=== PATIENT | female | born 1970 | race Caucasian/White ===

== ENCOUNTER 2025-02-20 10:59 | Outpatient (AMB) | payer OTHER, SELFPAY ==
--- OUTSIDE RECORDS SUMMARY | 2025-02-17 14:39 | XMS_ITS | Encounter Summary ---
Author Organization [facility] Address [address] [place] [address] Care Team Providers Care Application Systems Architect Name Role Phone Mariaelena Joya MD Primary Care Provider [phone] Reason for Referral * Imaging (Routine) - Authorized Specialty Diagnoses / Procedures Referred By Rocac t Referred To Contact Radiology Diagnoses Abnormal mammogram Procedures MG Mammo Digital Diagnostic w Dino Left Mariaelena Joya MD [address] [place] [address] Phone: tel: fax: [address] Phone: tel: Referral ID Status Reason Start Date Expiration Date V isits Requested Visits Authorized [id number] Authorized 01/27/2025 01/27/2026 1 1 Reason for Visit * Imaging (Routine) - Authorized Specialty Diagnoses / Procedures Referred By Contac t Referred To Contact Radiology Diagnoses Abnormal mammogram Procedures MG Mammo Digital Diagnostic w Dino Left Mariaelena Joya MD [address] [place], [place] [address]claudia Gil [place], [place] Phone: tel: fax: [address] Phone: tel: Referral ID Status Reason Start Date Expiration Date V isits Requested Visits Authorized [id number] Authorized 01/27/2025 01/27/2026 1 1 Encounter Details Date Type Department Care Team (Latest Contact Info) Description 02/17/2025 2:39 PM EDT - 02/17/2025 11:59 PM EDT Hospital Encounter Radiology Department - [address] [address] Abnormal mammogram Discharge Disposition: Home or Self Care Social History Tobacco Use Types Packs/Day Years Used Date Smoking Tobacco: Former Cigarettes Passive Smoke Exposure: Never Smokeless Tobacco: Never Housing Instability Answer Date Recorde d Are you worried that in the next 2 months you may not have stable housing? No 10/22/2024 Food Access & Nutrition Answer Date Rec orded Do you have access to a vari ety of food including fruits and vegetables? Yes 10/22/2024 Access to Healthcare Answer Date Record ed Within the last 3 months, ho w many times did you visit the emergency department for your medical care? 0 10/22/2024 Health Literacy Answer Date Recorded How often do you need to hav e someone help you when you read instructions, pamphlets, or other written material from your doctor or pharmacy? Sometimes 10/22/2024 Caregiver: How often do you need to have someone help you when you read instructions, pamphlets, or other written material from your doctor or pharmacy? Not on file 10/22/2024 Financial Risk Answer Date Recorded How hard is it for you to pa y for the very basics like food, housing, medical care, and air conditioning / heating? Somewhat hard 10/22/2024 Transportation Answer Date Recorded Has the lack of transportati on kept you from meetings, work, or from getting things needed for daily living? No Has the lack of transportati on kept you from medical appointments or from getting medications? No 10/22/2024 Social Isolation Answer Date Recorded How often do you feel lonely or isolated from those around you? Sometimes 10/22/2024 Food Risk Answer Date Recorded Within the past 12 months we worried whether our food would run out before we got money to buy more. Sometimes true 025 Within the past 12 months th e food we bought just didn't last and we didn't have money to get more. Never true 10/22/2024 Dependent Care Answer Date Recorded Do you need help finding or paying for care for your loved ones. For example, early childhood associate or elderly care for an older adult? No 10/22/2024 Education Answer Date Recorded Do you think completing more education or training, like finishing a GED, going to college, or learning a trade, would be helpful for you? N/A 10/22/2024 Employment and Income Answer Date Recor ded During the last four weeks, have you been actively looking for work? No 10/22/2024 Living Situation Answer Date Recorded What is your living situation? Unrecognized valu e 10/22/2024 Comments No Sex and Gender Information Value Date Recorded Sex Assigned at Not on file Legal Sex Female 11:02 AM EDT Gender Identity Not on file Sexual Orientation Not on file documented as of this encounter Medications at Time of Discharge ARIPiprazole (ABILIFY) 5 mg tablet TAKE 1 TABLET BY MOUTH 1 TIME EACH DAY. 90 tablet 01/28/2025 DULoxetine (CYMBALTA) [address] capsule TAKE 1 CAPSULE BY MOUTH 1 TIME EACH DAY. DO NOT CRUSH OR CHEW. 90 capsule 1 01/30/2025 EPINEPHrine (EPIPEN) 0.3 mg/0.3 mL injection Inject 0.3 mL (0.3 mg total) into the thigh if needed for anaphylaxis. Call 911 after use. 2 each 1 07/29/2024 07/29/2025 levothyroxine (SYNTHROID, LEVOTHROID) 150 mcg tablet Take 1 tablet (150 mcg total) by mouth 1 (one) time each day. 30 each 2 01/08/2025 04/08/2025 losartan (COZAAR) 25 mg tablet TAKE 1 TABLET BY MOUTH 1 TIME EACH DAY. 90 tablet 1 01/28/2025 documented as of this encounter Discharge Disposition Disposition Code Departure Means Destination Home or Self Care documented in this encounter Plan of Treatment Upcoming Encounters Date Type Department Care Team (Late st Contact Info) Description 04/13/2025 2:30 PM EST Office Visit Adult Medicine [address] [phone] Vira Newman PA [address] [place] [phone] documented as of this encounter Procedures Procedure Name Priority Date/Time Associated Diagnosis Comments MG MAMMO DIGITAL DIAGNOSTIC W DINO LEFT Routine 02/17/2025 2:50 PM EDT Abnormal mammogram documented in this encounter Results * MG Mammo Digital Diagnostic w Dino Left (02/17/2025 2:50 PM EDT) Anatomical Region Laterality Modality Breast Left Mammography 02/17/2025 3:31 PM EDT Impressions 02/17/2025 3:35 PM EDT Tiny benign cyst in the posterior upper left breast. No suspicious abnormalities. Follow-up mammogram at the time of the next annual screening examination. Findings and recommendations were conveyed to the patient. BI-RADS CATEGORY: 2 - BENIGN RECOMMENDATION: Return to annual mammography. Return to annual mammography. Mammo Location: [facility], [address] [place] [address], [address], . -------- FINAL REPORT -------- Dictated By: Susan Fredeirck Dictated Date: 02/17/2025 15:31 ET Assigned Physician: Susan Frederick Reviewed and Electronically Signed By: Susan Frederick Signed Date: 02/17/2025 15:35 ET Workstation ID: [id number] Transcribed By: Self Edit Transcribed Date: 02/17/2025 15:31 ET Narrative 02/17/2025 3:35 PM EDT Diagnostic mammogram of the left breast. Targeted left breast ultrasound. CLINICAL: 54 years old, Female, focal asymmetry in the posterior upper left breast on screening mammogram from 01/23/2025. FINDINGS: MAMMOGRAPHY TECHNIQUE: Spot compression MLO, magnified spot compression lateral view and full field Straight lateral views views, were obtained digitally with 2-D and 3-D mammogram (digital breast tomosynthesis). Small mostly circumscribed nodular opacity persists in the posterior upper left breast better visualized on spot compression MLO view. No superimposed microcalcifications were identified. BREAST DENSITY: C - The breasts are heterogeneously dense which may obscure small masses. ULTRASOUND TECHNIQUE: Targeted ultrasound of the left upper breast was performed from the upper outer and upper inner quadrants. There is a cyst at 2 o'clock, 9 cm from the nipple measuring 0.5 x 0.2 x 0.4 cm most likely corresponding to the mammographic focal asymmetry. No other cystic or solid masses or acoustic shadowing identified. Procedure Note Susan Frederick MD - 02/17/2025 Diagnostic mammogram of the left breast. Targeted left breastultrasound. CLINICAL: 54 years old, Female, focal asymmetry in the posterior upperleft breast on screening mammogram from 01/23/2025. FINDINGS: MAMMOGRAPHY TECHNIQUE: Spot compression MLO, magnified spot compression lateral viewand full field Straight lateral views views, were obtained digitally with2-D and 3-D mammogram (digital breast tomosynthesis). Small mostly circumscribed nodular opacity persists in the posterior upperleft breast better visualized on spot compression MLO view. Nosuperimposed microcalcifications were identified. BREAST DENSITY: C - The breasts are heterogeneously dense which mayobscure small masses. ULTRASOUND TECHNIQUE: Targeted ultrasound of the left upper breast was performed fromthe upper outer and upper inner quadrants. There is a cyst at 2 o'clock,9 cm from the nipple measuring 0.5 x 0.2 x 0.4 cm most likelycorresponding to the mammographic focal asymmetry. No other cystic orsolid masses or acoustic shadowing identified. IMPRESSION: Tiny benign cyst in the posterior upper left breast. No suspiciousabnormalities. Follow-up mammogram at the time of the next annualscreening examination. Findings and recommendations were conveyed to thepatient. BI-RADS CATEGORY: 2 - BENIGN RECOMMENDATION: Return to annual mammography. Return to annual mammography. Mammo Location: [facility], [address] [place] [address], [id number], . -------- FINAL REPORT -------- Dictated By: Susan Frederick Dictated Date: 02/17/2025 15:31 ET Assigned Physician: Susan Frederick Reviewed and Electronically Signed By: Susan Frederick Signed Date: 02/17/2025 15:35 ET Workstation ID: [id number] Transcribed By: Self Edit Transcribed Date: 02/17/2025 15:31 ET us Mariaelena Joya MD IMG BI PROCEDURES Final Res ult documented in this encounter Visit Diagnoses Diagnosis Abnormal mammogram Abnormal mammogram, unspecified documented in this encounter Additional Health Concerns Assessment Noted Time PHQ-9 Depression Total Score: 8 10/23/19 25 1:22 PM EDT documented as of this encounter Care Teams Application Systems Architect Relationship Specialty Start Date End Date Mariaelena Joya MD [address] [place] [address] PCP - General 05/18/23 documented as of this encounter
--- OUTSIDE RECORDS SUMMARY | 2025-02-17 14:41 | XMS_ITS | Encounter Summary ---
Author Organization [facility] Address [address] [place] [address] Care Team Providers Care Cut Off Machine Helper Name Role Phone Mariaelena Joya MD Primary Care Provider [phone] Reason for Referral * Imaging (Routine) - Authorized Specialty Diagnoses / Procedures Referred By Contac t Referred To Contact Radiology Diagnoses Abnormal mammogram Procedures US Breast Limited Left Mariaelena Joya MD [address] [place] [address] Phone: tel: fax: [address] Phone: tel: Referral ID Status Reason Start Date Expiration Date V isits Requested Visits Authorized [id number] Authorized 01/27/2025 01/27/2026 1 1 Reason for Visit * Imaging (Routine) - Authorized Specialty Diagnoses / Procedures Referred By Contac t Referred To Contact Radiology Diagnoses Abnormal mammogram Procedures US Breast Limited Left Mariaelena Joya MD [address] [place] [address] Phone: tel: fax: [address] Phone: tel: Referral ID Status Reason Start Date Expiration Date V isits Requested Visits Authorized [id number] Authorized 01/27/2025 01/27/2026 1 1 Encounter Details Date Type Department Care Team (Latest Contact Info) Description 02/17/2025 2:41 PM EDT - 02/17/2025 11:59 PM EDT Hospital Encounter Radiology Department - [address] [phone] Abnormal mammogram Discharge Disposition: Home or Self [...] your loved ones. For example, early childhood or elderly care for an older adult? [...] Upcoming Encounters Date Type Department Care Team ([facility] st Contact Info) Description 04/13/2025 2:30 PM EST Office Visit Adult Medicine [address] [phone] Vira Newman PA [address] [place] [address] documented as of this encounter Procedures Procedure Name Priority Date/Time Associated Diagnosis Comments US BREAST LIMITED LEFT Routine 02/17/2025 3:24 PM EDT Abnormal mammogram documented in this encounter Results * US Breast Limited Left (02/17/2025 3:24 PM EDT) Anatomical Region Laterality Modality Breast Left Ultrasound 02/17/2025 3:31 PM EDT Impressions 02/17/2025 3:35 PM EDT Tiny benign cyst in the posterior upper left breast. No suspicious abnormalities. Follow-up mammogram at the time of the next annual screening examination. Findings and recommendations were conveyed to the patient. BI-RADS CATEGORY: 2 - BENIGN RECOMMENDATION: Return to annual mammography. Return to annual mammography. Mammo Location: [facility], [address] [place] [address], [id number], . -------- FINAL REPORT -------- Dictated By: Susan Frederick Dictated Date: 02/17/2025 15:31 ET Assigned Physician: Susan Frederick Reviewed and Electronically Signed By: Susan Frederick Signed Date: 02/17/2025 15:35 ET Workstation ID: [id number] Transcribed By: Self Edit Transcribed Date: 02/17/2025 [...] mammography. Return to annual mammography. Mammo Location: [facility], [address] [place] [address], [id number], . -------- FINAL REPORT -------- Dictated By: Susan Frederick Dictated Date: 02/17/2025 15:31 ET Assigned Physician: Susan Frederick Reviewed and Electronically Signed By: Susan Frederick Signed Date: 02/17/2025 15:35 ET Workstation ID: [id number] Transcribed By: Self Edit Transcribed Date: 02/17/2025 15:31 ET us Mariaelena Joya MD IMG US PROCEDURES Final Res ult documented in this encounter Visit Diagnoses Diagnosis Abnormal mammogram Abnormal mammogram, unspecified documented in this encounter Additional Health Concerns Assessment Noted Time PHQ-9 Depression Total Score: 8 10/23/19 25 1:22 PM EDT documented as of this encounter Care Teams Cut Off Machine Helper Relationship Specialty Start Date End Date Mariaelena Joya MD [address] [place] [address] PCP - General 05/18/23 documented as of this encounter
--- NOTE | 2025-02-20 11:09 | A.OFFVIS_ITS ---
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 Intake Note: no concerns Information Interpreted: non-clinical & clinical Boat Carpenter: Boat Carpenter Present (Naye SOTO) Accompanied by: Self / Same As Patient Allergies acetaminophen (From Darvocet-N) Allergy (Intermediate, Verified 02/20/25 11:14) Swelling codeine Allergy (Intermediate, Verified 02/20/25 11:14) Vomiting Penicillins Allergy (Intermediate, Verified 02/20/25 11:14) agitation propoxyphene (From Darvocet-N) Allergy (Intermediate, Verified 02/20/25 11:14) Swelling Medication List - Last Reconciled 02/20/25 by Evi Hu CNM aripiprazole 5 mg PO DAILY duloxetine 60 mg PO ONCE levothyroxine 150 mcg PO DAILY losartan 25 mg PO DAILY rosuvastatin 10 mg PO DAILY Post menopausal: Yes HPI HPI 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 She believes she is due for Pap smear. 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 She has a primary care provider through [facility] she is on medication for depression and is looking for a therapist but it they are hard to find. She has been told that she has diabetic and so she is trying to walk and eat better but it is hard and she has a follow-up appointment in March. She recently had a mammogram and there was something that needed to be checked out and she had follow-up ultrasounds and mammogram that was reassuring so she is good on that front as well. [facility] Medical History (Updated 02/20/25 @ 12:14 by Evi Hu CNM) Cyst of ovary History of kidney stones Anxiety Hyperlipidemia HTN (hypertension) Surgical History (Updated 02/20/25 @ 11:23 by Naye Jack CMA) History of hip surgery Hx of foot surgery Hx of cholecystectomy Hx of tubal ligation Hx of section Family History (Updated 02/20/25 @ 11:25 by Naye Jack CMA) Father Diabetes Mother Diabetes Breast cancer Paternal Grandmother Ovarian cancer Maternal Grandfather Lung cancer Social History (Updated 02/20/25 @ 11:26 by Naye Jack CMA) Household Members: Spouse and Children Housing: House Alcohol intake: current Alcohol intake frequency: holidays/special occasions only Patient Tobacco Use Status: Former Tobacco user Tobacco use type: Cigarette Current occupational status: employed Current occupation: [employer] Sexual orientation: Straight/Heterosexual Gender identity: Female Female Reproductive History Menstrual control method: permanent sterilization Menopause type: natural Total pregnancies: 5 Full term: 2 Number of Living Children: 2 Ab spontaneous: 3 Physical Exam Vital Signs: Last Vital Signs BP 112/68 02/20/25 11:11 BMI result Body Mass Index 37.8 Const General: healthy appearing, comfortable, no acute distress, well developed and alert Nutritional Appearance: average body habitus Orientation/consciousness: patient oriented x3 Limitations: no limitations HEENT Head: Yes normocephalic Neck Neck: Yes normal visual inspection Chest Chest palpation & inspection: normal inspection of the chest Breast/axilla inspection: normal inspection of the breasts and normal inspection of the axillae Breast/axilla palpation: normal palpation of the breasts and normal palpation of the axillae Resp Effort & Inspection: normal respiratory effort GI Inspection: Yes normal to inspection, No Abdominal wall edema and No distended Palpation (GI): Soft to palpation and nontender Other: External scars from low-transverse as well as a vertical small incision 1 of the incisions was for ovarian cyst years ago. Vagina is pink and moist there is a whitish liquidy discharge for which testing is done today discussed the possibility of bacterial vaginosis and/or yeast. Cervix is pink difficult to visualize it is high in the vagina secondary to C- section scar tissue uterus difficult to palpate but not enlarged and nontender good tone with Kegel pubic arch feels very low. General: Yes bladder normal to palpation External Female Exam: normal external appearance and normal appearance of the urethra Speculum Exam - Vagina: normal appearance of the vagina, normal palpation and normal vaginal discharge Speculum Exam - Cervix: normal appearance of the cervix, normal palpation and nontender Bimanual exam- vagina & uterus: normal bimanual exam, normal palpation, uterine size normal, bladder normal to palpation, consistency normal, normal palpation, uterine mobility normal, uterine shape normal, No Cervical tenderness present, non-tender and no cervical motion tenderness Bimanual Exam- Adnexa, other: normal adnexae, no masses, normal and No adnexal tenderness Neuro General: patient oriented x3 Assessment & Plan Assessment & Plan (1) Well woman exam with routine gynecological exam: Code(s): Z01.419 - Encounter for gynecological examination (general) (routine) without abnormal findings Category: Medical (2) Diabetes: Comment: Just recently was told she is diabetic no meds yet working on diet and exercise has follow-up in 1 month. Code(s): E11.9 - Type 2 diabetes mellitus without complications Category: Medical (3) Obesity, Class II, BMI 35-39.9: Code(s): E66.9 - Obesity, unspecified Category: Medical (4) Cervical cancer screening: Code(s): Z12.4 - Encounter for screening for malignant neoplasm of cervix Category: Medical (5) Vaginal discharge: Code(s): N89.8 - Other specified noninflammatory disorders of vagina Category: Medical (6) Anxiety: Comment: Is on 2 medications said help and is seeking a therapist. Code(s): F41.9 - Anxiety disorder, unspecified Category: Medical Plan -----Discussed in this visit the following: healthy balanced diet, regular and consistent exercise, getting recommended health screens, doing the best she can for her particular health concerns, kegel exercises, pap smear screening and followup recommendations, mammography screening and SBE, normal changes in cycles in her life stage--- . See HPI for details discussed strategies to sneak in more walking and to aid in healthier eating habits as she begins to approach dealing with this new diagnosis of diabetes. She will be following up with her primary care provider in March. She is very busy with work and parenting. RTC for us in 1 year. Coding Level of Care Code New Pt Prev Care 40-64y([id number]) Diagnoses Well woman exam with routine gynecological exam Z01.419 Diabetes E11.9 Obesity, Class II, BMI 35-39.9 E66.9 Cervical cancer screening Z12.4 Vaginal discharge N89.8 Anxiety F41.9
[2025-02-20 11:11] VITALS: BP 112/68; BMI 37.8
--- OUTSIDE RECORDS SUMMARY | 2025-02-20 13:02 | XMS_ITS | Encounter Summary ---
Author Organization [facility] Address [address] [place] [address] Care Team Providers Care Trial Justice Name Role Phone Mariaelena Joya MD Primary Care Provider Encounter Details Date Type Department Care Team ([facility] st Contact Info) Description 01/29/2025 Results Follow-Up Adult Medicine [facility] [address] [place] [address] Mariaelena Joya MD [address] [place] [address] Social History Tobacco Use Types Packs/Day Years [...] care for your loved ones. For example, child protection specialist or elderly care for an older adult? [...] on file documented as of this encounter Plan of Treatment Upcoming Encounters Date Type Department Care Team (Late st Contact Info) Description 04/13/2025 2:30 PM EST Office Visit Adult Medicine [address] [phone] Vira Newman PA [address] [place] [address] documented as of this encounter Visit Diagnoses Not on filedocumented in this encounter Additional Health Concerns Assessment Noted Time PHQ-9 Depression Total Score: 8 10/23/19 25 1:22 PM EDT documented as of this encounter Care Teams Trial Justice Relationship Specialty Start Date End Date Mariaelena Joya MD [address] [place] [address] PCP - General 05/18/23 documented as of this encounter
--- OUTSIDE RECORDS SUMMARY | 2025-02-20 13:02 | XMS_ITS | Encounter Summary ---
Author Organization [facility] Address [address] [place] [address] Care Team Providers Care Brakeshoe Repairer Name Role Phone Mariaelena Joya MD Primary Care Provider Encounter Details Date Type Department Care Team ([facility] st Contact Info) Description 02/17/2025 Results Follow-Up Adult Medicine [facility] [address] [place] [address] Mariaelena Joya MD [address] [place] [address] Social History Tobacco Use Types Packs/Day Years [...] care for your loved ones. For example, residential child care counselor or elderly care for an older adult? [...] 2:30 PM EST Office Visit Adult Medicine [address] [phone] Vira Newman PA [address] [place] [address] documented as of this encounter Visit Diagnoses Not on filedocumented in this encounter Additional Health Concerns Assessment Noted Time PHQ-9 Depression Total Score: 8 10/23/19 25 1:22 PM EDT documented as of this encounter Care Teams Brakeshoe Repairer Relationship Specialty Start Date End Date Mariaelena Joya MD [address] [place] [address] PCP - General 05/18/23 documented as of this encounter
--- OUTSIDE RECORDS SUMMARY | 2025-02-20 13:02 | XMS_ITS | Clinical Summary ---
Author Organization [facility] [address] [place] [address] [place] [phone] Phone Care Team Providers Care Clinical Rehabilitation Aide Name Role Phone Mariaelena Joya MD Primary Care Provider Allergies No known active allergies Medications EPINEPHrine (EPIPEN) 0.3 mg/0.3 mL injection Inject 0.3 mL (0.3 mg total) into the thigh if needed for anaphylaxis . Call 911 after use. 2 each 1 5 07/30/19 26 Active rosuvastatin (CRESTOR) 10 mg tablet Take 1 tablet (10 mg total) by mouth 1 (one) time each day. 90 each 5 Active levothyroxine (SYNTHROID, LEVOTHROID) 150 mcg tablet Take 1 tablet (150 mcg total) by mouth 1 (one) time each day. 30 each 2 5 04/08/20 25 Active ARIPiprazole (ABILIFY) 5 mg tablet TAKE 1 TABLET BY MOUTH 1 TIME EACH DAY. 90 tablet 5 Active losartan (COZAAR) 25 mg tablet TAKE 1 TABLET BY MOUTH 1 TIME EACH DAY. 90 tablet 1 5 Active DULoxetine (CYMBALTA) [address] capsule TAKE 1 CAPSULE BY MOUTH 1 TIME EACH DAY. DO NOT CRUSH OR CHEW. 90 capsule 1 5 Active losartan (COZAAR) 25 mg tablet Take 1 tablet (25 mg total) by mouth 1 (one) time each day. 90 each 5 01/29/20 25 Discontinued DULoxetine (CYMBALTA) [address] capsule Take 1 capsule (60 mg total) by mouth 1 (one) time each day. Do not crush or chew. 90 each 5 01/31/20 25 Discontinued ARIPiprazole (ABILIFY) 5 mg tablet Take 1 tablet (5 mg total) by mouth 1 (one) time each day. 90 each 5 01/29/20 25 Discontinued Active Problems Problem Noted Date Diagnosed Date Anxiety and depression 10/23/2024 Diabetes mellitus, new onset (CMS/HCC V24, CMS/H CC V28) 10/23/2024 Class 2 severe obesity due t o excess calories with serious comorbidity and body mass index (BMI) of 38.0 to 38.9 in adult 10/23/2024 Obsessive-compulsive disorder 07/23/2024 Hyperlipidemia 07/23/2024 Primary hypertension 07/23/2024 Hypothyroidism 07/23/2024 Encounters Date Type Department Care Team Description 02/17/2025 2:41 PM EDT - 02/17/2025 11:59 PM EDT Hospital Encounter Radiology Department - [address] [phone] Abnormal mammogram Discharge Disposition: Home or Self Care 02/17/2025 2:39 PM EDT - 02/17/2025 11:59 PM EDT Hospital Encounter Radiology Department - [address] [phone] Abnormal mammogram Discharge Disposition: Home or Self Care 02/17/2025 Results Follow-Up Adult Medicine [address] [phone] Mariaelena Joya MD 01/29/2025 Results Follow-Up Adult Medicine [address] [phone] Mariaelena Joya MD 01/23/2025 9:45 AM EDT - 01/23/2025 11:59 PM EDT Hospital Encounter Radiology Department - [address] [phone] Annual physical exam Discharge Disposition: Home or Self Care 12/12/2024 9:30 AM EDT Office Visit Adult [address] [phone] Vira Nemwan PA Diabetes mellitus, new onset (CMS/HCC V24, CMS/HCC V28) (Primary Dx); Primary hypertension; Anxiety and depression; Mixed hyperlipidemia; Other specified hypothyroidism from Last 3 Months Immunizations Immunization Administration Dates Next Due Pneumococcal conjugate 20 va lent (Prevnar 20, PCV 20) 2mo and older 07/23/2024 Family History Medical History Relation Name Comments Breast cancer Mother 60's Relation Name Status Comments Mother 60's Social History Tobacco Use Types Packs/Day Years [...] care for your loved ones. For example, children teacher or elderly care for an older adult? [...] on file Sexual Orientation Not on file Obstetrics History Para Term AB IAB SAB Ectopic Multiple Livin g Live Births 2 2 2 2 Date Outcome GA Total Labor Labor/2nd/3rd Weight Sex Type Anes PTL Suzette A1 A5 Name Clin Term Term Last Filed Vital Signs Vital Sign Reading Time Taken Comments Blood Pressure 122/72 12/12/2024 9:07 AM EDT Pulse 86 12/12/2024 9:07 AM EDT Temperature 36.3 C (97.3 F) 12/12/2024 9:07 AM EDT Respiratory Rate 12 12/12/2024 9:07 AM EDT Oxygen Saturation 96% 10/23/2024 7:51 AM EDT Inhaled Oxygen Concentration - - Weight 99.8 kg (220 lb) 12/12/2024 9:07 AM EDT Height 162.6 cm (5' 4 ) 12/12/2024 9:07 AM EDT Body Mass Index 37.76 12/12/2024 9:07 AM EDT Plan of Treatment Upcoming Encounters Date Type Department Care Team (Late st Contact Info) Description 04/13/2025 2:30 PM EST Office Visit Adult Medicine [address] [phone] Vira Newman PA [address] [place], [place] Health Maintenance Due Date Last Done Comments Diabetes: Annual Retina Eye Exam 1981 RSV Immunization Adult Patients (1 - Risk 50-74 years 1-dose series) 2021 Cervical Cancer Screening: Pap Smear 04/30/2025 Postponed from 04/10 (Patient Refused) DTaP,Tdap,and Td Vaccines (1 - Tdap) 04/30/2025 Postponed from 04/10 (Patient Refused) Hepatitis B Vaccines (1 of 3 - 19+ 3-dose series) 04/30/2025 Postponed from 03/30 (Patient Refused) Zoster Vaccines (1 of 2) 04/30/2025 Pos tponed from 2021 (Patient Refused) Diabetes: Blood Sugar Contro l Test (HGBA1C) 06/06/2025 12/04/2024, 07/23/2024 Social Influencers of Health Screening 10/22/2025 10/22/2024, 07/23/2024 Diabetes: Annual Foot Exam 10/23/2025 10/23/2024 Diabetes: Annual Urine Albumin-Creatinine Ratio (uACR) 12/04/2025 12/04/2024 Diabetes: Annual GFR (Glomerular Filtration Rate) 12/04/2025 12/04/2024, 07/23/2024 Hypertension/CHF/CAD Annual BMP Blood Test 12/04/2025 12/04/2024, 07/23/2024 Breast Cancer Screening 02/17/2027 02/18/20, 01/23/2025 Colorectal Cancer Screening: Colonoscopy 04/30/2027 Postponed from 04/10 (Patient Refused) Cholesterol Screening (Lipid Panel) 12/04/2029 12/04/2024, 07/23/2024 HIV Screening Addressed 07/23/2024 Overridden wit h the intention of not completing the topic Hepatitis C Screening Completed 07/23/2024 Pneumococcal Vaccine: 50+ Years Completed 07/23/2024 Depression Screening Completed 10/22/2024 COVID-19 Vaccine Completed 01/16/2025, 01/31/2024, 02/03/2023 Influenza Vaccine Completed 01/16/2025, 01/31/2024 HIB Vaccines Aged Out No longer eligi ble based on patient's age to complete this topic HPV Vaccines Aged Out No longer eligi ble based on patient's age to complete this topic Hepatitis A Vaccines Aged Out No long er eligible based on patient's age to complete this topic IPV Vaccines Aged Out No longer eligi ble based on patient's age to complete this topic MMR Vaccines Aged Out No longer eligi ble based on patient's age to complete this topic Meningococcal ACWY Vaccine Aged Out N o longer eligible based on patient's age to complete this topic Meningococcal B Vaccine Aged Out No l onger eligible based on patient's age to complete this topic RSV Immunization Patients Under 20 months Aged Out No longer eligible b ased on patient's age to complete this topic Varicella Vaccines Aged Out No longer eligible based on patient's age to complete this topic Procedures Procedure Name Priority Date/Time Associated Diagnosis Comments US BREAST LIMITED LEFT Routine 3:24 PM EDT Abnormal mammogram MG MAMMO DIGITAL DIAGNOSTIC W DINO LEFT Routine 02/17/2025 2:50 PM EDT Abnormal mammogram MG MAMMO DIGITAL SCREENING W DINO BILAT Routine 01/23/2025 9:56 AM EDT Annual physical exam TRIIODOTHYRONINE FREE Routine 12/04/2024 12:17 PM EDT Hypothyroidism, unspecified type FREE THYROXINE WITH REFLEX TO FREE TRIIODOTHYRONINE Routine 12/04/2024 12:17 PM EDT Hypothyroidism, unspecified type CBC WITH AUTO DIFFERENTIAL Routine 12/04/2024 12:17 PM EDT Abnormal CBC THYROID STIMULATING HORMONE WITH REFLEX TO FREE T4 AND FREE T3 Routine 12/04/2024 12:17 PM EDT Hypothyroidism, unspecified type COMPREHENSIVE METABOLIC PANEL Routine 12/04/2024 12:17 PM EDT Type 2 diabetes mellitus with other specified complication, without long-term current use of insulin (CMS/HCC V24, CMS/HCC V28) HEMOGLOBIN A1C Routine 12/04/2024 12:17 PM EDT Type 2 diabetes mellitus with other specified complication, without long-term current use of insulin (CMS/HCC V24, CMS/HCC V28) MICROALBUMIN CREATININE URINE RATIO Routine 12/04/2024 12:17 PM EDT Type 2 diabetes mellitus with other specified complication, without long-term current use of insulin (CMS/HCC V24, CMS/HCC V28) CBC AND DIFFERENTIAL Routine 12/04/2024 12:17 PM EDT Abnormal CBC LIPID PANEL WITH REFLEX TO DIRECT LDL Routine 12/04/2024 12:17 PM EDT Hyperlipidemia, unspecified hyperlipidemia type ISLET CELL CYTOPLASMIC ANTIBODY, IGG Routine 12/04/2024 12:17 PM EDT Diabetes mellitus, new onset (CMS/HCC V24, CMS/HCC V28) GLUTAMIC ACID DECARBOXYLASE ANTIBODY Routine 12/04/2024 12:17 PM EDT Diabetes mellitus, new onset (CMS/HCC V24, CMS/HCC V28) INSULIN ANTIBODY Routine 12/04/2024 12:1 7 PM EDT Diabetes mellitus, new onset (CMS/HCC V24, CMS/HCC V28) B-TYPE NATRIURETIC PEPTIDE Routine 12/04/2024 12:17 PM EDT SOB (shortness of breath) HEPATITIS PANEL, ACUTE WITH REFLEX TO CONFIRMATION Routine 07/23/2024 4:09 PM EDT Annual physical exam from Last 3 Months or Most Recently Relevant to Health Maintenance Results * US Breast Limited Left (02/17/2025 [...] mammography. Return to annual mammography. Mammo Location: [facility], [address] [place] [address], [id number], . -------- FINAL REPORT -------- Dictated By: Susan Frederick Dictated Date: 02/17/2025 15:31 ET Assigned Physician: Susan Frederick Reviewed and Electronically Signed By: Susan Frederick Signed Date: 02/17/2025 15:35 ET Workstation ID: [id number] Transcribed By: Self Edit Transcribed Date: 02/17/2025 [...] mammography. Return to annual mammography. Mammo Location: [facility], [address] [place] [address], [id number], . -------- FINAL REPORT -------- Dictated By: Susan Frederick Dictated Date: 02/17/2025 15:31 ET Assigned Physician: Susan Frederick Reviewed and Electronically Signed By: Susan Frederick Signed Date: 02/17/2025 15:35 ET Workstation ID: [id number] Transcribed By: Self Edit Transcribed Date: 02/17/2025 15:31 ET us Mariaelena Joya MD IMG US PROCEDURES Final Res ult * MG Mammo Digital Diagnostic w Dino [...] mammography. Return to annual mammography. Mammo Location: [facility], [address] [place] [address], [id number], . -------- FINAL REPORT -------- Dictated By: Susan Frederick Dictated Date: 02/17/2025 15:31 ET Assigned Physician: Susan Frederick Reviewed and Electronically Signed By: Susan Frederick Signed Date: 02/17/2025 15:35 ET Workstation ID: [id number] Transcribed By: Self Edit Transcribed Date: 02/17/2025 [...] mammography. Return to annual mammography. Mammo Location: [facility], [address] [place] [address], [phone], . -------- FINAL REPORT -------- Dictated By: Susan Frederick Dictated Date: 02/17/2025 15:31 ET Assigned Physician: Susan Frederick Reviewed and Electronically Signed By: Susan Frederick Signed Date: 02/17/2025 15:35 ET Workstation ID: [id number] Transcribed By: Self Edit Transcribed Date: 02/17/2025 15:31 ET us Mariaelena Joya MD IMG BI PROCEDURES Final Res ult * (ABNORMAL) MG Mammo Digital Screening w Dino bilat (01/23/2025 9:56 AM EDT) Anatomical Region Laterality Modality Breast Bilateral Mammography 01/26/2025 7:14 PM EDT Impressions 01/26/2025 7:20 PM EDT Recommend additional imaging on the left. No new suspicious finding on the right. The radiology department will recall the patient. CALLBACK VIEWS: Left 90 ML and spot compression MLO views with tomosynthesis, magnification ML view; ultrasound BREAST DENSITY: C - The breasts are heterogeneously dense which may obscure small masses. BI-RADS CATEGORY: 0 - INCOMPLETE - NEED ADDITIONAL IMAGING EVALUATION RECOMMENDATION: Additional left breast imaging recommended. Mammo Location: [facility], [address] [place] [address], [id number], . -------- FINAL REPORT -------- Dictated By: Carly Pinedo Dictated Date: 01/26/2025 19:14 ET Assigned Physician: Carly Pinedo Reviewed and Electronically Signed By: Carly Pinedo Signed Date: 01/26/2025 19:20 ET Workstation ID: [id number] Transcribed By: Self Edit Transcribed Date: 01/26/2025 19:14 ET Narrative 01/26/2025 7:20 PM EDT EXAM: Screening Mammogram EXAM: Screening mammogram CLINICAL: 54 years old, Female, routine annual exam. COMPARISON: 03/04/2022 and 10/01/2020 TECHNIQUE: Bilateral MLO and CC views were obtained digitally with digital breast tomosynthesis. Computer-aided detection was utilized in evaluation of this exam (CAD). FINDINGS: Asymmetry with possible microcalcifications in the posterior upper left breast on the MLO view. Additional imaging evaluation recommended. Otherwise, no new suspicious mass, architectural distortion, or suspicious calcifications. Procedure Note Carly Pinedo MD - 01/26/2025 EXAM: Screening Mammogram EXAM: Screening mammogram CLINICAL: 54 years old, Female, routine annual exam. COMPARISON: 03/04/2022 and 10/01/2020 TECHNIQUE: Bilateral MLO and CC views were obtained digitally with digitalbreast tomosynthesis. Computer-aided detection was utilized in evaluationof this exam (CAD). FINDINGS: Asymmetry with possible microcalcifications in the posterior upper leftbreast on the MLO view. Additional imaging evaluation recommended. Otherwise, no new suspicious mass, architectural distortion, or suspiciouscalcifications. IMPRESSION: Recommend additional imaging on the left. No new suspicious finding onthe right. The radiology department will recall the patient. CALLBACK VIEWS: Left 90 ML and spot compression MLO views withtomosynthesis, magnification ML view; ultrasound BREAST DENSITY: C - The breasts are heterogeneously dense which mayobscure small masses. BI-RADS CATEGORY: 0 - INCOMPLETE - NEED ADDITIONAL IMAGING EVALUATION RECOMMENDATION: Additional left breast imaging recommended. Mammo Location: [facility], [address] [place] [address], [id number], . -------- FINAL REPORT -------- Dictated By: Carly Pinedo Dictated Date: 01/26/2025 19:14 ET Assigned Physician: Carly Pinedo Reviewed and Electronically Signed By: Carly Pinedo Signed Date: 01/26/2025 19:20 ET Workstation ID: [id number] Transcribed By: Self Edit Transcribed Date: 01/26/2025 19:14 ET Mariaelena Joya MD IMG BI PROCEDURES Final Res ult * (ABNORMAL) Thyroid stimulating hormone with reflex to free t4 and free t3 (12/04/2024 12:17 PM EDT) TSH 0.08(L) 0.40 - 4.00 mcIU/mL LAB CHEMISTRY METHOD 12/04/2024 5:18 PM EDT [facility] Blood Venous blood specimen / Unknown Venipuncture / Unknown 12/04/2024 12:17 PM EDT 12/04/2024 12:17 PM EDT Mariaelena Joya MD LAB BLOOD ORDERABLES Final Result [facility] [address] [place] [address], [place] [phone] * Free thyroxine with reflex to free triiodothyronine (12/04/2024 12:17 PM EDT) Free T4 1.70 0.70 - 1.80 ng/dL LAB CHEMISTRY METHOD 12/04/2024 7:45 PM EDT [facility] Blood Venous blood specimen / Unknown Venipuncture / Unknown 12/04/2024 12:17 PM EDT 12/04/2024 12:17 PM EDT Mariaelena Joya MD LAB BLOOD ORDERABLES Final Result [facility] [address] [place] [address], [place] [phone] * Lipid panel with reflex to direct LDL (12/04/2024 12:17 PM EDT) Cholesterol 129 0 - 200 mg/dL LAB CHEMISTRY METHOD 12/04/2024 3:04 PM EDT [facility] Triglycerides 82 0 - 150 mg/dL LAB CHEMISTRY METHOD 12/04/2024 3:04 PM EDT [facility] HDL 53 >=40 mg/dL LAB CHEMISTRY METHOD 12/04/2024 3:04 PM EDT [facility] LDL Calculated 60 0 - 100 mg/dL LAB CHEMISTRY METHOD 12/04/2024 3:04 PM EDT [facility] Comment:Estimated LDL Calcul ated using equation: Total cholesterol - HDL cholesterol - (Triglycerides/5) VLDL Cholesterol Federico 16.4 mg/dL LAB CHEMISTRY METHOD 12/04/2024 3:04 PM EDT [facility] Non HDL Chol. (LDL+VLDL) 76 <145 mg/dL LAB CHEMISTRY METHOD 12/04/2024 3:04 PM EDT [facility] Chol/HDL Ratio 2.4 0.0 - 4.4 LAB CHEMISTRY METHOD 12/04/2024 3:04 PM EDT [facility] Blood Venous blood specimen / Unknown Venipuncture / Unknown 12/04/2024 12:17 PM EDT 12/04/2024 12:17 PM EDT Mariaelena Joya MD LAB BLOOD ORDERABLES Final Result [facility] [address] [place] [address], * Islet cell cytoplasmic antibody, IgG (12/04/2024 12:17 PM EDT) [facility] Islet Cell Antibody IgG <1:4 <1:4 12/09/2024 1:13 PM EDT [facility] Comment: INTERPRETIVE INFORMATION: Islet Cell Ab, IgG Islet cell antibodies (ICAs) are associated with type 1 diabetes (TID), an autoimmune endocrine disorder. ICAs may be present years before the onset of clinical symptoms. To calculate Juvenile Diabetes Foundation (JDF) units: multiply the titer x 5 (1:8 8 x 5 = 40 JDF Units). This test was developed and its performance characteristics determined by [facility]. It has not been cleared or approved by the [place] Food and Drug Administration. This test was performed in a CLIA certified laboratory and is intended for clinical purposes. Performed By: [facility] [address] [place] [id number] [employer] Bluer: Ismael Grijalva MD, PhD CLIA Number: [id number] Blood Venous blood specimen / Unknown Venipuncture / Unknown 12/04/2024 12:17 PM EDT 12/04/2024 12:17 PM EDT us Mariaelena Joya MD LAB BLOOD ORDERABLES Final Result [facility] [address] [place] [address] * (ABNORMAL) CBC auto differential (12/04/2024 12:17 PM EDT) [facility] WBC 7.7 4.8 - 10.8 K/mcL LAB HEMETOLOGY METHOD 12/04/2024 2:01 PM EDT [facility] RBC 5.50(H) 3.80 - 4.80 M/mcL LAB HEMETOLOGY METHOD 12/04/2024 2:01 PM EDT [facility] Hemoglobin 14.2 11.5 - 16.0 g/dL LAB HEMETOLOGY METHOD 12/04/2024 2:01 PM [facility] Hematocrit 45.5 35.0 - 47.0 % LAB [facility]OLOG[facility] MCV 83.5 79.0 - 98.0 FL LAB HEMETOLOGY METHOD 12/04/2024 2:01 PM [facility] MCH 26.1(L) 27.0 - 32.0 pcg LAB HEMETOLOGY METHOD 12/04/2024 2:01 PM [facility] MCHC 31.2(L) 32.0 - 37.0 g/dL LAB HEMETOLOGY METHOD 12/04/2024 2:01 PM [facility] RDW 13.6 11.0 - 15.0 % LAB HEMETOLOGY METHOD 12/04/2024 2:01 PM [facility] Platelets 313 130 - 400 K/mcL LAB HEMETOLOGY METHOD 12/04/2024 2:01 PM [facility] MPV 10.9 7.0 - 11.0 FL LAB HEMETOLOGY METHOD 12/04/2024 2:01 PM [facility] NRBC 0.0 <1.0 % LAB HEMETOLOGY METHOD 12/04/2024 2:01 PM [facility] NRBC Absolute 0.00 <0.10 K/mcL LAB HEMETOLOGY METHOD 12/04/2024 2:01 PM [facility] Neutrophils Relative 60.8 % LAB HEMETOLOGY METHOD 12/04/2024 2:01 PM [facility] Lymphocytes Relative 30.8 % LAB HEMETOLOGY METHOD 12/04/2024 2:01 PM [facility] Monocytes Relative 5.8 % LAB HEMETOLOGY METHOD 12/04/2024 2:01 PM [facility] Eosinophils Relative 1.4 % LAB HEMETOLOGY METHOD 12/04/2024 2:01 PM EDT [facility] Basophils Relative 0.8 % LAB HEMETOLOGY METHOD 12/04/2024 2:01 PM [facility] Immature Granulocytes Relative 0.4 % LAB HEMETOLOGY METHOD 12/04/2024 2:01 PM EDT [facility] Neutrophils Absolute 4.69 1.50 - 7.00 K/mcL LAB HEMETOLOGY METHOD 12/04/2024 2:01 PM EDT [facility] Lymphocytes Absolute 2.38 1.00 - 5.00 K/mcL LAB HEMETOLOGY METHOD [facility]24 [facility] Monocytes Absolute 0.45 0.20 - 1.00 K/mcL LAB HEMETOLOGY METHOD 12/04/2024 2:01 PM EDT [facility] Eosinophils Absolute 0.11 0.00 - 0.50 K/mcL LAB HEMETOLOGY METHOD 12/04/2024 2:01 PM EDT [facility] Basophils Absolute 0.06 0.00 - 0.20 K/mcL LAB HEMETOLOGY METHOD 12/04[facility]2024 2[facility] Immature Granulocytes Absolute 0.03 0.00 - 0.03 K/mcL LAB HEMETOLOGY METHOD 12/04/2024 2:01 PM EDT [facility] Blood Venous blood specimen / Unknown Venipuncture / Unknown 12/04/2024 12:17 PM EDT 12/04/2024 12:17 PM EDT us Mariaelena Joya MD LAB BLOOD ORDERABLES Final Result [facility] [address] [place] [address], * Microalbumin creatinine urine ratio (12/04/2024 12:17 PM EDT) [facility] Creatinine, Urine 185.0 mg/dL LAB CHEMISTRY METHOD 12/04/2024 3:19 PM EDT [facility] Microalb, Ur 16.6 0.0 - 29.0 mg/L LAB CHEMISTRY METHOD 12/04/2024 3:19 PM EDT [facility] Microalb/Creat Ratio 9 <30 mg/g creat LAB CHEMISTRY METHOD 12/04/2024 3:19 PM EDT [facility] Urine Urine specimen obtained by clean catch procedure / Unknown Non-blood Collection / Unknown 12/04/2024 12:17 PM EDT 12/04/2024 12:17 PM EDT Mariaelena Joya MD LAB URINE ORDERABLES Final Result [facility] [address] [place] [address], [place] [phone] * Glutamic acid decarboxylase antibody (12/04/2024 12:17 PM EDT) [facility] Glutamic Acid Decarboxylase Ab <5 <5 IU/mL 12/09/2024 4:34 PM EDT [facility] Comment: Test performed at [facility], [address], [place] [address] Shweta Quinonez MD, PhD - Reports Analysis Manager Blood Venous blood specimen / Unknown Venipuncture / Unknown 12/04/2024 12:17 PM EDT 12/04/2024 12:17 PM EDT Mariaelena Joya MD LAB BLOOD ORDERABLES Final Result [facility] [address] [place] [address] * Insulin antibody (12/04/2024 12:17 PM EDT) [facility] Insulin Antibody <0.4 0.0 - 0.4 U/mL 12/10/2024 8:15 PM EDT [facility] Comment: INTERPRETIVE INFORMATION: Insulin Antibody A value greater than 0.4 Kronus Units/mL is considered positive for Insulin Antibody. Kronus units are arbitrary. Kronus Units = U/mL. This assay is intended for the semi-quantitative determination of antibodies to endogenous insulin or antibodies to exogenous insulin in human serum. Antibodies to exogenous insulin therapies may be detected using this method. The magnitude of the measured result is not related to disease progression. Results should be interpreted within the context of clinical symptoms. Performed By: [facility] [address] [place] [id number] [employer] Bluer: Ismael Grijalva MD, PhD CLIA Number: [id number] Blood Venous blood specimen / Unknown Venipuncture / Unknown 12/04/2024 12:17 PM EDT 12/04/2024 12:17 PM EDT Mariaelena Joya MD LAB BLOOD ORDERABLES Final Result [facility] [address] [place] [address] * Triiodothyronine free (12/04/2024 12:17 PM EDT) [facility] T3, Free 368 230 - 420 pcg/dL LAB CHEMISTRY METHOD 12/04/2024 9:01 PM EDT [facility] Blood Venous blood specimen / Unknown Venipuncture / Unknown 12/04/2024 12:17 PM EDT 12/04/2024 12:17 PM EDT Mariaelena Joya MD LAB BLOOD ORDERABLES Final Result [facility] [address] [place] [address], [place] [phone] * B-type natriuretic peptide (12/04/2024 12:17 PM EDT) [facility] BNP 33 <=100 pcg/mL LAB CHEMISTRY METHOD 12/04/2024 2:56 PM EDT [facility] Blood Venous blood specimen / Unknown Venipuncture / Unknown 12/04/2024 12:17 PM EDT 12/04/2024 12:17 PM EDT Mariaelena Joya MD LAB BLOOD ORDERABLES Final Result Performing Organization Address [facility]/ZIP Co de Phone Number [facility] [address] [place] [address], [place] [phone] * (ABNORMAL) Hemoglobin A1c (12/04/2024 12:17 PM EDT) [facility] Hemoglobin A1C 6.9(H) <6.5 % LAB CHEMISTRY METHOD 12/04/2024 9:47 PM EDT [facility] Mean Bld Glu Estim. 151 mg/dL LAB CHEMISTRY METHOD 12/04/2024 9:47 PM EDT [facility] Blood Venous blood specimen / Unknown Venipuncture / Unknown 12/04/2024 12:17 PM EDT 12/04/2024 12:17 PM EDT us Mariaelena Joya MD LAB BLOOD ORDERABLES Final Result Performing Organization Address [facility]/ZIP Co de Phone Number [facility] [address] [place] [address], [place] [phone] * (ABNORMAL) Comprehensive metabolic panel (12/04/2024 12:17 PM EDT) [facility] Sodium 138 133 - 145 mmol/L LAB CHEMISTRY METHOD 12/04/2024 3:04 PM EDT [facility] Potassium 4.5 3.5 - 5.5 mmol/L LAB CHEMISTRY METHOD 12/04/2024 3:04 PM EDT [facility] Chloride 106 96 - 110 mmol/L LAB CHEMISTRY METHOD 12/04/2024 3:04 PM [facility] CO2 29 21 - 32 mmol/L LAB CHEMISTRY METHOD 12/04/2024 3:04 PM [facility] Anion Gap 3 3 - 11 LAB CHEMISTRY METHOD 12/04/2024 3:04 PM [facility] Glucose 123(H) 70 - 100 mg/dL LAB CHEMISTRY METHOD 12/04/2024 3:04 PM [facility] BUN 11 5 - 25 mg/dL LAB CHEMISTRY METHOD 12/04/2024 3:04 PM [facility] Creatinine 0.90 0.50 - 1.10 mg/dL LAB CHEMISTRY METHOD 12/04/2024 3:04 PM [facility] eGFR 77 >=60 mL/min/1. 73m2 LAB CHEMISTRY METHOD 12/04/2024 3:04 PM [facility] Comment:Calculation based on the Chronic Kidney Disease Epidemiology Collaboration (CKD-EPI) equation refit without adjustment for race. BUN/Creatinine Ratio 12.2 LAB CHEMISTRY METHOD 12/04/2024 3:04 PM [facility] Calcium 9.6 8.5 - 10.5 mg/dL LAB CHEMISTRY METHOD 12/04/2024 3:04 PM [facility] AST (SGOT) 13 10 - 42 unit/L LAB CHEMISTRY METHOD 12/04/2024 3:04 PM [facility] ALT (SGPT) 26 10 - 60 unit/L LAB CHEMISTRY METHOD 12/04/2024 3:04 PM [facility] Alkaline Phosphatase 110 42 - 121 unit/L LAB CHEMISTRY METHOD 12/04/2024 3:04 PM [facility] Total Protein 7.0 6.0 - 8.0 g/dL LAB CHEMISTRY METHOD 12/04/2024 3:04 PM [facility] Albumin 4.0 3.2 - 5.0 g/dL LAB CHEMISTRY METHOD 12/04/2024 3:04 PM EDT [facility] Total Bilirubin 0.5 0.0 - 1.4 mg/dL LAB CHEMISTRY METHOD 12/04/2024 3:04 PM EDT [facility] Blood Venous blood specimen / Unknown Venipuncture / Unknown 12/04/2024 12:17 PM EDT 12/04/2024 12:17 PM EDT Mariaelena Joya MD LAB BLOOD ORDERABLES Final Result [facility] [address] [place] [address], [place] [phone] * Hepatitis panel, acute with reflex to confirmation (07/23/2024 4:09 PM EDT) Hepatitis B Surface Ag Negative Negative LAB CHEMISTRY METHOD 07/23/2024 9:55 PM EDT [facility] Hepatitis A Antibody IgM Negative Negative LAB CHEMISTRY METHOD 07/23/2024 9:55 PM EDT [facility] Hep B Core IgM Negative Negative LAB CHEMISTRY METHOD 07/23/2024 9:55 PM EDT [facility] Hepatitis C Antibody Negative Negative LAB CHEMISTRY METHOD 07/23/2024 9:55 PM EDT [facility] Blood Venous blood specimen / Unknown Venipuncture / Unknown 07/23/2024 4:09 PM EDT 07/23/2024 4:09 PM EDT Mariaelena Joya MD LAB BLOOD ORDERABLES Final Result [facility] [address] [place] [address], [place] [phone] from Last 3 Months or Most Recently Relevant to Health Maintenance Insurance [employer] [place] [id number] Care Teams Clinical Rehabilitation Aide Relationship Specialty Start Date End Date Mariaelena Joya MD [address] [place] [id number] PCP - General 05/18/23
== END 2025-02-20 12:10 | disposition home or self-care (01) ==
LOC: HO.HWS 11:00
PROVIDERS: Visit Provider Advanced Practice Midwife
DX: Z01.419 Encounter for gynecological examination (general) (routine) without abnormal findings (principal); E11.9 Type 2 diabetes mellitus without complications; E66.9 Obesity, unspecified; Z68.37 Body mass index [BMI] 37.0-37.9, adult; N89.8 Other specified noninflammatory disorders of vagina; F41.9 Anxiety disorder, unspecified
CPT/HCPCS: 99386; 99459

== ENCOUNTER 2025-02-20 10:59 | Outpatient (REF) | payer OTHER, SELFPAY ==
[2025-02-21 04:56] LABS: Bacterial Vaginosis PCR POSITIVE (Negative); Candida Group PCR NOT DETECTED (Not Detect); Candida glab krusei PCR DETECTED (Not Detect); Trichomonas vaginalis PCR NOT DETECTED (Not Detect)
[2025-02-21 05:27] LABS: CT PCR NOT DETECTED (Not Detect.); NG PCR NOT DETECTED (Not Detect.)
== END 2025-02-20 11:00 | disposition home or self-care (01) ==
LOC: HO.LNP 10:59
PROVIDERS: Visit Provider Advanced Practice Midwife
DX: Z01.419 Encounter for gynecological examination (general) (routine) without abnormal findings (principal); N89.8 Other specified noninflammatory disorders of vagina; E11.9 Type 2 diabetes mellitus without complications; F41.9 Anxiety disorder, unspecified; E66.9 Obesity, unspecified; Z68.37 Body mass index [BMI] 37.0-37.9, adult; Z20.2 Contact with and (suspected) exposure to infections with a predominantly sexual mode of transmission; Z98.51 Tubal ligation status; Z79.890 Hormone replacement therapy; Z79.899 Other long term (current) drug therapy
CPT/HCPCS: 81515; 87491; 87591; 87626; 88175; 99386